=== PATIENT | female | born 1980 | race Caucasian/White ===

== ENCOUNTER → 2023-08-21 | Outpatient (CLI) | payer OTHER ==
[~2023-08-21] MED LIST: ALBUTEROL0.09 MG/A2 IH; ANAPROX DS550 MG PO; AUGMENTIN 875 M1 TAB PO; BENTYL20 MG PO; CIPRODEX 0.3%-7.5 ML OT; CIPROFLOXACIN500 MG PO; CLINDAMYCIN HC300 MG PO; DARVOCET N 1001 TAB PO; DONNATAL1 TAB PO; EES400 MG PO; EFFEXOR XR75 MG PO; FLAGYL500 MG PO; LEVOFLOXACIN500 MG PO; LIBRIUM5 MG PO; LISINOPRIL10 M1 PO; MOTRIN600 MG PO; MOTRIN800 MG PO; NATURE'S BLEND F1 MG PO; PEPCID20 MG PO; PERCOCET 325 MG1 TA6 PO; PROPRANOLOL HCL20 M1 PO; THERA TABS1 TAB PO; TRAMADOL HCL50 MG PO; TRIMOX500 MG PO; VALIUM10 MG PO; VICODIN 5/500 505 MG PO; VICODIN ES 7501 TAB PO; VISTARIL25 M2 PO; VITAMIN B-11 TAB PO; XANAX0.25 MG PO; ZITHROMAX Z PA250 MG PO; ZOFRAN ODT4 MG PO; ZOFRAN ODT4 MG SL
== END | disposition home or self-care (01) ==
LOC: LAB 10:22
PROVIDERS: ATTEND Nurse Practitioner
DX: Z51.81 Encounter for therapeutic drug level monitoring (principal); F31.9 Bipolar disorder, unspecified

== ENCOUNTER 2024-11-19 14:22 | Emergency (ER) | payer OTHER ==
[~2024-11-19] VITALS: Ht 160 cm; Wt 82.3 kg
[2024-11-19] MEDS ORDERED: BREYNA 160-4.10.3 GM INH (14:32)
[2024-11-19] MEDS ORDERED: ALBUTEROL SULFATE HF (14:32)
[2024-11-19] MEDS ORDERED: NEURONTIN300 MG PO (14:33)
[2024-11-19] MEDS ORDERED: STELARA90 MG/1 ML SQ (14:33)
[2024-11-19] MEDS ORDERED: PREGABALIN100 MG PO (14:33)
[2024-11-19] MEDS ORDERED: LYVISPAH10 M1 PO (14:33)
[2024-11-19] MEDS ORDERED: DIVALPROEX SOD500 M1 PO (14:34)
[2024-11-19] MEDS ORDERED: BUSPAR5 MG PO (14:34)
[2024-11-19] MEDS ORDERED: 'XANAX0.5 MG PO (14:34)
[2024-11-19] MEDS ORDERED: MELATONIN5 M7 PO (14:34)
[2024-11-19] MEDS ORDERED: INVEGA TRI IM (14:35)
[2024-11-19] MEDS ORDERED: AMOX-CLAV 875-1 EACH PO (15:01)
[2024-11-19] MEDS ORDERED: FLUCONAZOLE 150 MG TAB PO ONE (15:05)
[2024-11-19] MEDS ORDERED: Amoxicillin/Clavulanate Pota 875 MG TAB PO ONE (15:05)
== END 2024-11-19 15:14 | disposition home or self-care (01) ==
LOC: ED 14:22
DX: S01.532A Puncture wound without foreign body of oral cavity, initial encounter (principal); I10 Essential (primary) hypertension; F41.9 Anxiety disorder, unspecified; F32.A Depression, unspecified; Z88.5 Allergy status to narcotic agent; Z79.899 Other long term (current) drug therapy; Z90.49 Acquired absence of other specified parts of digestive tract; Z87.442 Personal history of urinary calculi; Z87.891 Personal history of nicotine dependence; X58.XXXA Exposure to other specified factors, initial encounter; Y93.89 Activity, other specified; Y92.89 Other specified places as the place of occurrence of the external cause; Y99.8 Other external cause status

== ENCOUNTER 2025-03-19 15:48 | Emergency (ER) | payer OTHER ==
[~2025-03-19] VITALS: Ht 160 cm; Wt 81.6 kg
[~2025-03-19 15:48] MED LIST changes: +'XANAX0.5 MG PO; +ALBUTEROL SULFATE HF; +AMOX-CLAV 875-1 EACH PO; +BREYNA 160-4.10.3 GM INH; +BUSPAR5 MG PO; +DIVALPROEX SOD500 M1 PO; +INVEGA TRI IM; +LYVISPAH10 M1 PO; +MELATONIN5 M7 PO; +NEURONTIN300 MG PO; +PREGABALIN100 MG PO; +STELARA90 MG/1 ML SQ
[2025-03-19] MEDS ORDERED: PALIPERIDONE E1.5 MG PO (16:02)
[2025-03-19] MEDS ORDERED: SODIUM CHLORIDE 0.9% 1,000 ML IV ONE (16:10)
[2025-03-19 16:37] LABS: BILIRUBIN Negative (Negative); BLOOD Negative (Negative); CLARITY Clear (Clear); COLOR Yellow (Yellow); KETONE Negative (Negative); LEUKO ESTERASE Trace (Negative); NITRITE Negative (Negative); PH 8.0 (4.5-8.0); SPECIFIC GRAVITY <= 1.005 (1.001-1.030); UROBILINOGEN 0.2 E.U./dl (0.0-1.0)
[2025-03-19 16:53] LABS: BACTERIA 1+; RBC 0-2 rbc/hpf (0-2)
[2025-03-19 16:58] LABS: BASO # 0.1 10*3/uL (0.0-0.1); BASO % 0.4 % (0.0-1.0); EOS # 0.2 10*3/uL (0.0-0.4); EOS % 1.5 % (1.0-4.0); MEAN CELL VOLUME 87.5 fl (81.0-99.0); MEAN CORPUSCULAR HGB 29.9 pg (27.0-31.0); MEAN PLATELET VOLUME 9.6 fl (9.6-12.3); MONO # 1.1 10*3/uL (0.1-1.0); MONO % 8.7 % (3.0-9.0); NEUT # 8.8 10*3/uL (2.3-7.9); NEUT % 71.9 % (47.0-73.0); NUCLEATED RED BLOOD CELL 0.0 % (0.0-0.0); NUCLEATED RED BLOOD CELL 0.0 10*3/uL (0.0-0.0); PLATELET COUNT AUTOMATED 281 10*3/uL (130-400); RED CELL DISTRI WIDTH 14.0 % (0-14.5)
[2025-03-19 17:19] LABS: BUN 7 mg/dl (9-23)
== END 2025-03-19 17:32 | disposition home or self-care (01) ==
LOC: ED 15:48
PROVIDERS: Emergency Medicine
DX: Z88.5 Allergy status to narcotic agent (principal); Z79.899 Other long term (current) drug therapy; F17.200 Nicotine dependence, unspecified, uncomplicated; F32.A Depression, unspecified; F41.9 Anxiety disorder, unspecified